=== PATIENT | male | born 1955 | race Caucasian/White ===

== ENCOUNTER 2016-06-24 10:38 | Emergency (ER) | payer SELFPAY ==
[2016-06-24 11:15] VITALS: BP 145/75
[2016-06-24] MEDS ORDERED: Tetan/Diph/Pertus SYR(Tdap)* 0.5 ML SYR(BOOSTRIX) use SYR IM ONE (11:26)
--- NOTE | 2016-06-24 11:26 | UC ---
Skin Complaint HPI - HPI Summary HPI Summary: bit by a spider just below left eye brow by a spider 3 days ago. worsening erythema and burning - History of Current Complaint Chief Complaint: UCEye Time Seen by Provider: 06/24/16 11:15 Stated Complaint: LEFT EYE COMPLAINT Hx Obtained From: Patient Onset/Duration: Sudden Onset, Lasting Days - 3, Still Present Skin Exposure Onset/Duration: Days Ago - 3 Timing: Constant Onset Severity: Mild Current Severity: Mild Pain Intensity: 5 Pain Scale Used: 0-10 Numeric Location: Discrete - below left eye brow Character: Pain, Redness Aggravating: Nothing Alleviating: Nothing Associated Signs & Symptoms: Positive: Negative Related History: Insect Bite/Sting - Allergy/Home Medications Allergies/Adverse Reactions: Allergies Allergy/AdvReac Type Severity Reaction Status Date / Time No Known Allergies Allergy Verified 06/24/16 11:15 Review of Systems Constitutional: Negative Skin: Other - erythema and swelling below left eye brow and above left eye lid Eyes: Negative ENT: Negative Respiratory: Negative Cardiovascular: Negative Gastrointestinal: Negative Genitourinary: Negative Motor: Negative Neurovascular: Negative Musculoskeletal: Negative Neurological: Negative Psychological: Negative All Other Systems Reviewed And Are Negative: Yes PMH/Surg Hx/FS Hx/Imm Hx Previously Healthy: Yes Endocrine History Of: Denies: Diabetes, Thyroid Disease, Hyperthyroidism, Hypothyroidism, Dyslipidemia Cardiovascular History Of: Denies: Cardiac Disorders, Hypertension, Pacemaker/ICD, Myocardial Infarction , Congestive Heart Failure, Atrial Fibrillation, Deep Vein Thrombosis, Bleeding Disorders Respiratory History Of: Denies: COPD, Asthma, Bronchitis, Pneumonia, Pulmonary Embolism GI/ History Of: Denies: Gastroesophageal Reflux, Ulcer, Gastrointestinal Bleed, Gall Bladder Disease, Kidney Stones, Diverticulitis, Renal Disease, Urosepsis Neurological History Of: Denies: TIA, CVA, Dementia, Seizures, Migraine Psychological History Of: Denies: Anxiety, Depression, Bipolar Disorder, Schizophrenia, Post Traumatic Stress Disorder Cancer History Of: Denies: Lung Cancer, Colorectal Cancer, Breast Cancer, Prostate Cancer, Cervical Cancer Other History Of: Negative For: HIV, Hepatitis B, Hepatitis C - Surgical History Surgical History: Yes Surgery Procedure, Year, and Place: RIGHT ARM SURGERY FOR FB AND LACERATION - Family History Known Family History: Positive: None - Social History Occupation: Employed Full-time - self employed Alcohol Use: None Substance Use Type: Marijuana Substance Use Comment - Amount & Last Used: once a day, last used this morning Smoking Status (MU): Never Smoked Tobacco Type: Cigarettes Amount Used/How Often: 1-2 CIGS DAILY Length of Time of Smoking/Using Tobacco: 40 yrs Have You Smoked in the Last Year: No When Did the Patient Quit Smoking/Using Tobacco: ~2014 - Immunization History Most Recent Influenza Vaccination: November 2014 Physical Exam Triage Information Reviewed: Yes Appearance: Well-Appearing, No Pain Distress, Well-Nourished Vital Signs: Initial Vital Signs Temp 97.7 F 06/24/16 11:07 Pulse 68 06/24/16 11:07 Resp 18 06/24/16 11:07 BP 145/75 06/24/16 11:07 Pulse Ox 98 06/24/16 11:07 Eye Exam: Normal Eyes: Positive: Conjunctiva Clear, Other: - EOMI not painful intact ENT Exam: Normal ENT: Positive: Normal ENT inspection, Hearing grossly normal, TMs normal. Negative: Nasal congestion, Nasal drainage, Tonsillar swelling, Tonsillar exudate, Trismus, Muffled/hoarse voice Neck exam: Normal Neck: Positive: Supple, Nontender, No Lymphadenopathy Respiratory Exam: Normal Respiratory: Positive: Chest non-tender, Lungs clear, Normal breath sounds, No respiratory distress, No accessory muscle use Cardiovascular Exam: Normal Cardiovascular: Positive: RRR, No Murmur, Pulses Normal, Brisk Capillary Refill Musculoskeletal Exam: Normal Musculoskeletal: Positive: Strength Intact, ROM Intact, No Edema Neurological Exam: Normal Neurological: Positive: Alert, Muscle Tone Normal, Fatigued Psychological Exam: Normal Skin Exam: Normal Course/Dx - Course Course Of Treatment: warm compress bactrim follow with optho. - Differential Diagnoses - Skin Complaint Differential Diagnoses: Cellulitis, Local Allergic Reaction - cellulitis left eye lid, Tick Born Illness - Diagnoses Provider Diagnoses: Left eye lid cellulitis Discharge - Discharge Plan Condition: Stable Disposition: HOME Prescriptions: Sulfamethox/Trimethoprim DS* [Bactrim DS 800/160 TAB*] 1 tab PO BID #20 tab Patient Education Materials: Sulfamethoxazole/Trimethoprim (By mouth), Diphtheria/Acellular Pertussis/Tetanus Booster Vaccine (Tdap) (Injection), Cellulitis (ED), Heat Pack Application (ED) Referrals: Lynn Johnson MD [Medical Doctor] - 3 Days (re-check ) No Primary Care Phys,NOPCP [Primary Care Provider] -
== END 2016-06-24 11:45 | disposition home or self-care (01) ==
LOC: UCCORT 10:38
DX: H00.034 Abscess of left upper eyelid (principal); Z23 Encounter for immunization; F12.90 Cannabis use, unspecified, uncomplicated; Z87.891 Personal history of nicotine dependence
CPT/HCPCS: 90715; 96372; 99212; G0463

== ENCOUNTER 2018-06-26 08:24 | Inpatient (IN) | payer OTHER ==
--- NOTE | 2018-06-18 14:28 | HP ---
HISTORY AND PHYSICAL: DATE OF ADMISSION/SURGERY: 06/26/18 DATE OF OFFICE VISIT: 06/18/18 SURGEON: Ellie Randall MD* (dictated by ARELY Blair). PROCEDURE: Right total hip arthroplasty. CHIEF COMPLAINT: Right hip pain. HISTORY OF PRESENT ILLNESS: Mr. Leblanc is a 62-year-old gentleman with endstage osteoarthritis of the right hip. He has failed conservative treatment and elected to proceed with surgery. PAST MEDICAL HISTORY: Denies. PAST SURGICAL HISTORY: Denies. CURRENT MEDICATIONS: Tramadol as needed. ALLERGIES: None. FAMILY HISTORY: Stroke, diabetes, and coronary artery disease. SOCIAL HISTORY: He is a 62-year-old gentleman, lives with his . He smokes 3 to 4 cigarettes a day. Denies use of drugs or alcohol. REVIEW OF SYSTEMS: A complete 14-point review of systems was reviewed with the patient. It was all negative or noncontributory. He denies history of DVT, PE , hepatitis, HIV, or anesthesia problems. PHYSICAL EXAMINATION GENERAL: He is well developed, well nourished, in no acute distress. VITAL SIGNS: He stands 69 inches tall, weighs 194 pounds. His blood pressure is 124/80, his heart rate is 72. HEENT: Normocephalic, atraumatic. NECK: Supple. No palpable lymph nodes. PULMONARY: The lungs are clear to auscultation bilaterally. CARDIO: Regular rate and rhythm. Strong S1, S2. ABDOMEN: Soft, nontender, nondistended. NEUROLOGICAL: He is alert and oriented x3. MUSCULOSKELETAL: Right lower extremity: The skin is intact. There are no open wounds or abrasions. He walks with an antalgic-type gait favoring his right hip. He has 90 degrees of hip flexion, 0 degrees of internal rotation, 10 degrees of external rotation, all reproducing groin pain. He has a 2+ palpable pulse, intact sensation, and his lower extremity muscle group strengths are intact at 5/5. ASSESSMENT AND PLAN: Mr. Leblanc is a 62-year-old gentleman with endstage osteoarthritis of the right hip. He has failed conservative treatment and elected to proceed with a right total hip arthroplasty. The surgery is scheduled for 06/26/[address] Randall discussed the risks and benefits of the surgery at today's visit and all of his questions were answered. He will follow up with Dr. Randall 2 weeks after the surgery. ARELY BLAIR [id number]/CPS #: [id number] MTDD
[~2018-06-26 08:24] MED LIST: Acetaminophen IV 1GM/100ML * 1,000 MG/100 ML VIAL IVPB ONE; Buffered Lidocaine 1% SYRIN* 1 ML/SYRINGE INTRADERM ONE; Dexamethasone IV* 4 MG/ML 1 ML (4 MG) IV SLOW PU ONE; Famotidine IV* 10 MG/ML 2 ML (20 mg) IV ONE; Gabapentin CAP(*) 300 MG PO ONE; Lactated Ringers 1000 ML Bag* 1,000 ML IV SCH; celeCOXIB CAP* 200 MG PO ONE
--- OUTSIDE RECORDS SUMMARY | 2018-06-26 10:16 | XMS REPORT | Continuity of Care Document ---
:1955 External Reference #:[id number] Author Name Anne Laguerre Care Team Providers Name Role Phone Jimbo Johns MD Primary Care Physician Unavailable Payers Date Identification Numbers Payment Provider Subscriber Policy Number: [id number] [employer] Insurance Mora White PayID: [id number] [address] [place] [address] Advance Directives Description No Information Available Problems Date Description Provider Status Onset: 05/18/2018 Localized, primary osteoarthritis of the Ellie Randall M.D. Active pelvic region and thigh Family History Date Family Member(s) Observation Comments General DM,HTN,Stroke,Cancer Father Stroke Mother Diabetes Type II Siblings 5 Social History Type Date Description Comments Sex Unknown Marital Status Lives With Diet Healthy, Well Balanced Occupation Currently Working Occupation [employer] Right-handed ETOH Use Occasionally consumes alcohol Tobacco Use Start: Unknown Light tobacco smoker (10 or fewer 3 a day cigarettes/day) Smoking Status Reviewed: 06/07/18 Light tobacco smoker (10 or fewer 3 a day cigarettes/day) Exercise Type/Frequency Exercises regularly Allergies, Adverse Reactions, Alerts Description No Known Drug Allergies Medications Medication Date Status Form Strength Qnty SIG Indications Ordering Provider Hydrocodone-A Active Tablets 5-325mg 60tabs 1 or 2 M16.11 Ellie cetaminophen 019 tabs by Emigdio Randall mouth every 6-8 hours as needed for pain Celecoxib Active Capsules 200mg 1 by mouth Unknown 000 every day Tramadol HCL 0 Hx Tablets 50mg 1-2 Unknown 000 - tablets by mouth 019 every 6 hours as needed pain Immunizations Description No Information Available Vital Signs Date Vital Result Comment 06/07/2018 9:05am Height 69 inches 5'9" Weight 192.00 lb Heart Rate 70 /min BP Systolic 140 mmHg BP Diastolic 78 mmHg Respiratory Rate 16 /min O2 % BldC Oximetry 98 % BMI (Body Mass Index) 28.4 kg/m2 05/18/2018 10:42am Height 69.0 inches 5'9" Weight 192.00 lb BP Systolic 144 mmHg BP Diastolic 82 mmHg Pain Level 9 BMI (Body Mass Index) 28.4 kg/m2 Results Test Date Facility Test Result H/L Range Note Laboratory test 06/08/2018 [facility] PSA Screening 1.985 ng/mL N 0-4.000 [address] [place] [address] [phone] Comp Metabolic 06/08/2018 [facility] Sodium 140 mmol/L N 135- [address] [place] [address] [phone] Potassium 4.7 mmol/L N 3.5-5.0 Chloride 104 mmol/L N 101-111 Co2 Carbon Dioxide 25 mmol/L N 22-32 Anion Gap 11 mmol/L N 2-11 Glucose 122 mg/dL High 70-100 Blood Urea Nitrogen 17 mg/dL N 6-24 Creatinine 0.81 mg/dL N 0.67-1.17 BUN/Creatinine Ratio 21.0 High 8-20 Calcium 9.3 mg/dL N 8.6-10.3 Total Protein 7.0 g/dL N 6.4-8.9 Albumin 4.5 g/dL N 3.2-5.2 Globulin 2.5 g/dL N 2-4 Albumin/Globulin Ratio 1.8 N 1-3 Total Bilirubin 0.70 mg/dL N 0.2-1.0 Alkaline Phosphatase 73 U/L N 34-104 Alt 47 U/L N 7-52 Ast 23 U/L N 13-39 Egfr Non- 96.6 >60 Egfr 116.8 >60 2 CBC Auto Diff 06/08/2018 [facility] White Blood 8.8 10^3/uL N 3.5-10.[address] [place] [address] [phone] Red Blood Count 4.87 10^6/uL N 4.18-5.48 Hemoglobin 15.3 g/dL N 14.0-18.0 Hematocrit 44 % N 36-46 Mean Corpuscular Volume 91 fL N 80-94 Mean Corpuscular Hemoglobin 31 pg N 27-31 Mean Corpuscular HGB Conc 35 g/dL N 31-36 Red Cell Distribution Width 13 % N 10.5-15 Platelet Count 251 10^3/uL N 150-450 Mean Platelet Volume 8.5 fL N 7.4-10.4 Abs Neutrophils 5.1 10^3/uL N 1.5-7.7 Abs Lymphocytes 2.5 10^3/uL N 1.0-4.8 Abs Monocytes 1.0 10^3/uL High 0-0.8 Abs Eosinophils 0.1 10^3/uL N 0-0.6 Abs Basophils 0 10^3/uL N 0-0.2 Abs Nucleated RBC 0 10^3/uL Granulocyte % 58.4 % Lymphocyte % 28.3 % Monocyte % 11.6 % Eosinophil % 1.3 % Basophil % 0.4 % Nucleated Red Blood Cells % 0 Laboratory test 06/08/2018 [facility] TSH (Thyroid 3.59 mcIU/mL N 0.34-5.[address] [place]) [place] [address] [phone] 1 Serum levels of PSA measured using the [employer] [place] DXI Hybritech immunoassay should not be interpreted as absolute evidence of the presence or absence of disease. The PSA value should be used in conjunction with other pertinent clinical diagnostic procedures. The values obtained with different assay methods or kits cannot be used interchangeably. 2 Because ethnic data is not always readily available, this report includes an eGFR for both -Americans and non- Americans. The National Kidney Disease Education Program (NKDEP) does not endorse the use of the MDRD equation for patients that are not between the ages of 18 and 70, are , have extremes of body size, muscle mass, or nutritional status, or are non- or non-. According to the National Kidney Foundation, irrespective of diagnosis, the stage of the disease is based on the level of kidney function: Stage Description GFR(mL/min/1.73 m(2)) 1 Kidney damage with normal or decreased GFR 90 2 Kidney damage with mild decrease in GFR 60-89 3 Moderate decrease in GFR 30-59 4 Severe decrease in GFR 15-29 5 Kidney failure <15 (or dialysis) Procedures Description No Information Available Encounters Type Date Location Provider Dx Diagnosis Office Visit 06/07/2018 [facility] Jimbo Z01.818 Encounter for other 9:00a MD Nat preprocedural examination M16.11 Unilateral primary osteoarthritis, right hip M25.551 Pain in right hip F17.200 Nicotine dependence, unspecified, uncomplicated Z12.11 Encounter for screening for malignant neoplasm of colon Z12.5 Encounter for screening for malignant neoplasm of prostate Office Visit 05/18/2018 10:30a [facility] Ellie Randall, M25.551 Pain in right Of C.M.A. M.D. hip M16.11 Unilateral primary osteoarthritis, right hip Plan of Treatment Future Appointment(s):06/26/2018 4:30 pm - [facility] 4:30 pm - ARELY Farris at [facility]A.06/10/2019 9:30 am - Jimbo Johns MD at [facility]06/26/2018 4:30 pm - [facility] 8:30 am - Ellie Randall M.D. at [facility]A.2018 - Jimbo Johns MDZ01.818 Encounter for other preprocedural hucqawgwwjmI32.11 Unilateral primary osteoarthritis, right hipFollow up:1 year fveffdocU15.551 Pain in right hipF17.200 Nicotine dependence, unspecified, ahszhjxmkzokiS42.11 Encounter for screening for malignant neoplasm of colonReferral:Tova Gardner MD, QwrbxamkyhwkxgjlF62.5 Encounter for screening for malignant neoplasm of prostate
--- OUTSIDE RECORDS SUMMARY | 2018-06-26 10:16 | XMS REPORT | Continuity of Care Document ---
:1955 External Reference #:[id number] Author Name Arnaud Buckner Care Team Providers Name Role Phone Raisa Winston Primary Care Physician Unavailable Payers Date Identification Numbers Payment Provider Subscriber Policy Number: [id number] [employer] Insurance hossein white PayID: [id number] [address] [place] [address] Advance Directives Description No Information Available Problems [...] BMI (Body Mass Index) 28.4 kg/m2 Results Description No Information Available Procedures Description No Information Available Encounters Type Date Location Provider Dx Diagnosis Office Visit 05/18/2018 [facility] Randlal, M25.551 Pain in right hip 10:30a [facility] M16.11 Unilateral primary osteoarthritis, right hip Plan of Treatment Future Appointment(s):06/10/2019 9:30 am - Jimbo Johns MD at [facility]06/26/2018 3:30 pm - Ellie Randall M.D. at [facility]/18/2018 8:30 am - Ellie Randall M.D. at [facility]
--- OUTSIDE RECORDS SUMMARY | 2018-06-26 10:16 | XMS REPORT | Continuity of Care Document ---
:1955 External Reference #:[id number] Author Name Jeffy Carvalho Care Team Providers Name Role Phone Jimbo Johns MD Primary Care Physician Unavailable Payers Date Identification Numbers Payment Provider Subscriber Policy Number: [id number] [employer] Insurance Mora White PayID: [id number] [address] [place] [address] Advance Directives Description No Information Available Problems Date Description Provider Status Onset: 05/18/2018 Localized, primary osteoarthritis of the Elliereina Randall M.D. Active pelvic region and thigh [...] 3 a day cigarettes/day) Smoking Status Reviewed: 06/18/18 Light tobacco smoker (10 or fewer 3 a day cigarettes/day) Exercise Type/Frequency Exercises regularly Allergies, Adverse Reactions, Alerts Description No Known Drug Allergies Medications Medication Date Status Form Strength Qnty SIG Indications Ordering Provider No Active Active Unknown Medications 019 Hydrocodone-Ac Hx Tablets 5-325mg 60tabs 1 or 2 M16.11 Ellie etaminophen 019 - tabs by Prakash nathan M.DRosa 019 every 6-8 hours as needed for pain Tramadol HCL 0 Hx Tablets 50mg 1-2 Unknown 000 - tablets by mouth 019 every 6 hours as needed pain Celecoxib 0 Hx Capsules 200mg 1 by mouth Unknown 000 - every day 019 Immunizations Description No Information Available Vital Signs Date Vital Result Comment 06/18/2018 8:41am Height 69 inches 5'9" Weight 194.00 lb Heart Rate 72 /min BP Systolic 124 mmHg BP Diastolic 80 mmHg Respiratory Rate 16 /min Body Temperature 97.3 F Pain Level 10 BMI (Body Mass Index) 28.6 kg/m2 06/07/2018 9:05am Height 69 inches 5'9" Weight [...] Result H/L Range Note Laboratory test 06/08/2018 [facility] PSA Screening 1.985 ng/mL N 0-4.000 1 finding [address] [place] [address] [phone] Comp Metabolic 06/08/2018 [facility] Sodium 140 mmol/L N 135- 145 Panel [address] [place] [address] [phone] Potassium 4.7 mmol/L N 3.5-5.0 Chloride 104 [...] 116.8 >60 2 CBC Auto Diff 06/08/2018 [facility] White Blood 8.8 10^3/uL N 3.5-10.[address] [place] [address] [phone] Red Blood Count 4.87 10^6/uL N 4.18-5.48 [...] Blood Cells % 0 Laboratory test 06/08/2018 [facility] TSH (Thyroid 3.59 mcIU/mL N 0.34-5.[address] [place]) [place] [address] [phone] 1 Serum levels of PSA measured using the [employer] [place] DXI Hybritech immunoassay should not be interpreted [...] Location Provider Dx Diagnosis Office Visit 06/07/2018 [facility] Jimbo Z01.818 Encounter for other 9:00a MD Nat preprocedural examination M16.11 Unilateral primary osteoarthritis, right hip M25.551 Pain in right hip F17.200 Nicotine dependence, unspecified, uncomplicated Z12.11 Encounter for screening for malignant neoplasm of colon Z12.5 Encounter for screening for malignant neoplasm of prostate Office Visit 05/18/2018 10:30a [facility] Ellie Randall M25.551 Pain in right Of C.M.Yony Beal hip M16.11 Unilateral primary osteoarthritis, right hip Plan of Treatment Future Appointment(s):07/06/2018 9:00 am - Ellie Randall M.D. at [facility].A.06/26/2018 4:30 pm - ALEJANDRA Paul at [facility].A.06/26/2018 4:30 pm - ARELY Farris at [facility].A.06/10/2019 9:30 am - Jimbo Johns MD at [facility] Primary Care06/26/2018 4:30 pm - Ellie Randall M.D. at [facility].A.03/2018 - Ellie Randall M.D.M25.551 Pain in right hipFollow up:Follow up: 2 weeks after mtfcocyE65.11 Unilateral primary osteoarthritis, right hip
[2018-06-26] MEDS ORDERED: Dexamethasone IV* 4 MG/ML 1 ML (4 MG) ONE (10:27)
[2018-06-26] MEDS ORDERED: Gabapentin CAP(*) 300 MG ONE (10:27)
[2018-06-26] MEDS ORDERED: Famotidine IV* 10 MG/ML 2 ML (20 mg) ONE (10:28)
[2018-06-26] MEDS ORDERED: Acetaminophen IV 1GM/100ML * 100 ML ONE (10:32)
[2018-06-26] MEDS ORDERED: celeCOXIB CAP* 100 MG ONE (10:52)
[2018-06-26] MEDS ORDERED: fentaNYL* 50 MCG/ML 2 ML VIAL (100 MCG VIAL) ONE ×3 (11:53→17:42)
[2018-06-26] MEDS ORDERED: Midazolam* 1 MG/ML 5 ML VIAL (5 MG) ONE ×2 (11:53→13:59)
[2018-06-26] MEDS ORDERED: KETAMINE HCL* 50 MG/ML 10 ML VIAL ONE (11:53)
[2018-06-26] MEDS ORDERED: Ondansetron INJ* 2 MG/ML VIAL ONE (11:54)
[2018-06-26] MEDS ORDERED: Bupivacaine 0.5% SDV PF* 30ML VIAL ONE (11:54)
[2018-06-26] MEDS ORDERED: Propofol* 10 MG/ML 20 ML BTL ONE ×2 (11:54→15:31)
[2018-06-26] MEDS ORDERED: fentaNYL* 50 MCG/ML 2 ML VIAL (100 MCG VIAL) IV SLOW PU PRN (12:00)
[2018-06-26] MEDS ORDERED: Ropivacaine (OR use only) 2 MG/ML 10 ML ONE (12:48)
[2018-06-26] MEDS ORDERED: ROPIVACAINE 5 MG/ML 30 ML BTL (0.5%) ONE (12:48)
[2018-06-26] MEDS ORDERED: EPHEDrine (Pressors)* 50 MG/ML VIAL ONE (14:17)
[2018-06-26] MEDS ORDERED: Glycopyrrolate IV* 0.2 MG/ML 1 ML VIAL ONE (14:17)
[2018-06-26] MEDS ORDERED: Phenylephrine 10 MG/ML VIAL* 1 ML VIAL ONE (14:35)
[2018-06-26] MEDS ORDERED: HYDROmorphone INJ1* 1 MG/ML SYRINGE IV PRN (14:52)
[2018-06-26] MEDS ORDERED: Ondansetron INJ* 2 MG/ML VIAL IV PRN (14:52)
[2018-06-26] MEDS ORDERED: DiMENhydriNATE IV* 50 MG/ML VIAL IV PUSH PRN (14:52)
[2018-06-26] MEDS ORDERED: Naloxone* 0.4 MG/ML 1 ML VIAL IV PRN (14:52)
[2018-06-26] MEDS ORDERED: Magnesium Hydroxide LIQ* 30 ML UDC PO PRN (15:32)
[2018-06-26] MEDS ORDERED: Morphine INJ* 2 MG/ML 1 ML SYRINGE (TWO MG - NEW SYRINGE VERSION) IV PRN (15:32)
[2018-06-26] MEDS ORDERED: diPHENhydraMINE IV* 50 MG/ML 1 ml VIAL (BENADRYL) IV PRN (15:32)
[2018-06-26] MEDS ORDERED: Polyethylene Glycol 3350* 17 GM PACKET PO PRN (15:32)
[2018-06-26] MEDS ORDERED: Ondansetron TAB* 4 MG PO PRN (15:32)
[2018-06-26] MEDS ORDERED: Bisacodyl SUPP* 10 MG SUPP PR PRN (15:32)
[2018-06-26] MEDS ORDERED: Cyclobenzaprine TAB* 10 MG PO PRN (15:32)
[2018-06-26] MEDS ORDERED: oxyCODONE/Acetamin 5/325 MG* TAB PO PRN (15:32)
[2018-06-26] MEDS: fentaNYL* 50 MCG/ML 2 ML VIAL (100 MCG VIAL) IV PRN ×2 (17:43→18:27)
--- NOTE | 2018-06-26 19:45 | OP ---
Operative Report - Blank - Operative Report Date of Operation: 06/26/18 Note: VEENA RAMOS 1955 Date Of Surgery: 06/26/18 Ellie Randall MD Grinder Needle Tip: Ina MCGEE did help throughout the procedure with preparation of the hip, wound retraction, manipulation of the hip, and wound closure. Anesthesiologist: Yashira Lundy MD Anesthesia Type: spinal Preoperative Diagnosis: Right severe degenerative osteoarthritis of the hip Postoperative Diagnosis: As above Procedure Performed: Right Total Hip Arthroplasty Complications: None Specimen: Femoral head and acetabular reamings sent to pathology. Hardware used: This is uncemented Ken total hip arthroplasty hardware for the femur a size 4 accolade II with 127 degree neck femoral component, for the acetabulum a size 56F trident II tritanium cluster hole shell with one 20 mm screw, for the insert a size 40F trident x3 zero degree polyethylene insert, and for the femoral head a size 40 +0 biolox ceramic V40 femoral head. Brief history/Indication: VEENA RAMOS was known in clinic and had a history of severe right hip pain. He failed conservative treatment with anti- inflammatories, pain pills, intra-articular injections and physical therapy. He elected to undergo right total hip arthroplasty due to continued pain and decreased quality of life. Radiographs showed severe end stage osteoarthritis of the hip with bone on bone contact. Informed consent was obtained from the patient. He understood the risks of surgery included but were not limited to: bleeding, infection, damage to nearby structures, intraoperative fracture, nerve palsy, failure of the hardware, early loosening, stiffness or loss of motion, dislocation, leg length discrepancy, anesthesia complications, stroke, heart attack, blood clot and . He wished to proceed. Intra-Operative findings: Intraoperatively the patient was noted to have severe loss of cartilage of the acetabulum and femoral head. Description of the Procedure: VEENA RAMOS was identified in the preanesthesia unit. His right hip was marked as the correct operative side. Informed consent was signed and placed in the chart. The patient was taken to the operating room and placed under anesthesia without complication. A mcdowell catheter was placed. The patient was placed on the peg board with all bony prominences well padded. The right lower extremity was prepped and draped in the usual sterile fashion. Preoperative time-out was made to correctly identify the patient, side and site. Appropriate intraoperative antibiotics were given within one hour of incision. A standard posterior incision was made and carried sharply down to the lateral fascia. A new 10 blade was used to make an incision in the fascia in line with the skin incision. A charnley retractor was placed. The piriformis and conjoined tendons were identified and elevated off the posterolateral femur using electrocautery. These were tagged with number 5 Ethibond. Next electrocautery was used to make a posterolateral capsular flap and this was tagged with number 5 Ethibonds. The hip was carefully dislocated. Lesser trochanter to the center of the femoral head was measured at 62 mm. The oscillating saw was used to make the femoral neck cut. The femoral head was carefully removed. The femur was retracted anteriorly and the acetabular retractors were placed. Long-handled knife was used to sharply remove any remaining labrum from the acetabular rim. The acetabulum was sequentially reamed up to a size 55. A bleeding subchondral bone bed was obtained. A trial liner was placed and had excellent fit and stability. A 56F trident II tritanium clusterhole shell was placed and had excellent stability with appropriate anteversion and abduction angle. A single 20 mm screw was placed. A size 40 F trident x3 zero degree polyethylene liner was impacted into the acetabular shell. The liner was checked for stability and was stable. Next attention was turned to preparation of the femoral canal. A canal finder was used to enter the proximal femur. The femoral canal was sequentially broached up to a size 4 femoral broach trial. A trial neck and 40+ 0 trial femoral head was chosen. Lesser trochanter to center of the femoral head measurement was satisfactory. The hip was reduced and taken through a range of motion. The hip was stable in all positions with good soft tissue tension and appropriate leg lengths. The hip was dislocated and all trials were removed. The final implant chosen was a 4 accolade II with 127 degree neck. This stem was impacted into the femoral canal without difficulty. The stem was stable with appropriate anteversion. The femoral head chosen was a 40 + 0 biolox delta ceramic head. The head was impacted onto the femoral neck without difficulty. The final lesser trochanter to center of the femoral head measurement was satisfactory. The hip was reduced and taken through a range of motion. The hip was stable in all positions with good soft tissue tension and appropriate leg lengths. The hip was copiously irrigated with sterile saline. The previously tagged capsule and tendons were repaired to the posterolateral femur through two trochanteric drill holes. The lateral fascia layer was closed using number 1 vicryls. The rest of the incision was closed in a layered fashion using 0 and 2-0 vicryls. The skin was closed using 3-0 monocryl suture and Dermabond. Sterile adaptic, 4x4s and paper tape was used to cover the incision. The patients anesthesia was reversed without difficulty. He was taken to the PACU in stable condition. Intended weight-bearing will be as tolerated with posterior hip precautions.
[2018-06-26] MEDS: Lactated Ringers 1000 ML Bag* 1,000 ML IV SCH (19:57)
[2018-06-26] MEDS: oxyCODONE/Acetamin 5/325 MG* TAB PO PRN (20:25)
[2018-06-26] MEDS: traMADol TAB* 50 MG PO PRN (20:28)
[2018-06-26] MEDS: ceFAZolin 1 GM ADVAN(*) 1 GM in NS 0.9% 50 ML* 50 ML IVPB SCH ×2 (21:53→22:56)
[2018-06-26] MEDS: Acetaminophen TAB* 325 MG PO SCH (21:56)
[2018-06-26] MEDS: oxyCODONE TAB* 5 MG TAB PO PRN (22:46)
[2018-06-26] MEDS: Docusate CAP* 100 MG PO SCH (22:47)
[2018-06-26] MEDS: Magnesium Hydroxide LIQ* 30 ML UDC PO SCH (22:47)
[2018-06-27] MEDS: oxyCODONE/Acetamin 5/325 MG* TAB PO PRN ×3 (00:59→09:21)
[2018-06-27 05:31] LABS: Hematocrit 36 % (36-46); Hemoglobin 12.1 g/dL (14.0-18.0); Mean Platelet Volume 8.2 fL (7.4-10.4); Platelet Count 225 10^3/uL (150-450)
[2018-06-27] MEDS: ceFAZolin 1 GM ADVAN(*) 1 GM in NS 0.9% 50 ML* 50 ML IVPB SCH ×2 (05:41→13:05)
[2018-06-27 05:49] LABS: BUN/Creatinine Ratio 14.7 (8-20); Calcium 8.7 mg/dL (8.6-10.3); EGFR African American 127.7 (>60); EGFR Non-African American 105.5 (>60); Potassium 4.4 mmol/L (3.5-5.0)
[2018-06-27] MEDS: Lactated Ringers 1000 ML Bag* 1,000 ML IV SCH (06:10)
[2018-06-27] MEDS: Acetaminophen TAB* 325 MG PO SCH ×3 (06:43→22:35)
--- NOTE | 2018-06-27 07:04 | PN ---
Progress Note - Progress Note Date of Service: 06/27/18 SOAP: Subjective: Pt. reports pain is under control, anterior right thigh is numb. Objective: Vital Signs: Temp Pulse Resp BP Pulse Ox 97.9 F 75 16 130/66 94 06/26/18 22:30 06/26/18 22:30 06/27/18 05:40 06/26/18 22:30 06/26/18 22:30 Laboratory Results - last 24 hr 06/27/18 06/27/18 04:55 04:55 Hgb 12.1 L Hct 36 Plt Count 225 MPV 8.2 Sodium 136 Potassium 4.4 Chloride 105 Carbon Dioxide 27 Anion Gap 4 BUN 11 Creatinine 0.75 Est GFR ( Amer) 127.7 Est GFR (Non-Af Amer) 105.5 BUN/Creatinine Ratio 14.7 Glucose 157 H Calcium 8.7 RLE - anterior thigh with decreased sens LT, distally nvi with full sens lt, +df /pf/ehl, 2+ dp pulse. 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
[2018-06-27] MEDS: Apixaban* 2.5 MG TAB PO SCH ×2 (09:22→22:34)
[2018-06-27] MEDS: Magnesium Hydroxide LIQ* 30 ML UDC PO SCH ×2 (09:22→22:25)
[2018-06-27] MEDS: Docusate CAP* 100 MG PO SCH ×2 (09:23→22:37)
[2018-06-27] MEDS: oxyCODONE TAB* 5 MG TAB PO PRN (11:09)
[2018-06-27] MEDS: Simethicone TAB* 80 MG TAB.CHEW PO PRN ×2 (13:01→22:37)
[2018-06-27] MEDS: traMADol TAB* 50 MG PO PRN (13:01)
[2018-06-27] MEDS: Ondansetron INJ* 2 MG/ML VIAL IV PRN (18:11)
--- NOTE | 2018-06-27 20:11 | PN ---
Hospitalist Progress Note Date of Service: 06/27/18 Patient seen and evaluated full consult dictated #[id number] 62 year old male s/p right TKA with abdominal pain Imp: 1. Ileus versus mechanichal obstructions - Recommend NPO except meds, minimize narcotics, continue bowel regimen, continue IVF. Labs ordered, CT Abdomen and pelvis, pending CT abdomen if mechanical obstruction will need to call surgery, if simply ileus, than keep npo ambulate and NGT only if he devellops vomiting Will continue to follow
[2018-06-27 20:37] LABS: ABS Basophils 0 10^3/ul (0-0.2); ABS Eosinophils 0 10^3/ul (0-0.6); ABS Lymphocytes 1.1 10^3/ul (1.0-4.8); ABS Monocytes 1.4 10^3/ul (0-0.8); ABS Neutrophils 10.7 10^3/ul (1.5-7.7); ABS Nucleated RBC 0 10^3/ul; Eosinophil % 0 %; Hematocrit 36 % (36-46); Hemoglobin 12.3 g/dL (14.0-18.0); Lymphocyte % 8.2 %; Mean Corpuscular HGB Conc 34 g/dL (31-36); Mean Corpuscular Hemoglobin 31 pg (27-31); Mean Corpuscular Volume 91 fL (80-94); Mean Platelet Volume 7.6 fL (7.4-10.4); Nucleated Red Blood Cells % 0; Platelet Count 218 10^3/uL (150-450); Red Blood Count 3.93 10^6 /uL (4.18-5.48); Red Cell Distribution Width 13 % (10.5-15); White Blood Count 13.2 10^3/uL (3.5-10.8)
[2018-06-27 20:57] LABS: Calcium 8.9 mg/dL (8.6-10.3); EGFR African American 116.8 (>60); EGFR Non-African American 96.6 (>60); Phosphorus 2.5 mg/dL (2.5-5.0); Potassium 4.1 mmol/L (3.5-5.0)
--- NOTE | 2018-06-27 21:36 | CONS ---
CC: Dr. Randall from Orthopedics; ARELY Santos * CONSULTATION REPORT: DATE OF CONSULT: 06/27/18 REQUESTING PHYSICIAN: Dr. Jimbo Lundy, orthopedic. CONSULTING PHYSICIAN: Dr. Braden. PRIMARY CARE PROVIDER: ARELY Santos SERVICE: Hospitalist Medicine. CHIEF COMPLAINT: Abdominal pain and possible obstruction versus ileus. SUBJECTIVE: This is a 62-year-old male with significant medical history pertinent for chronic right hip osteoarthritis for which he was admitted on 12/06 for elective right total hip arthroplasty, underwent the procedure without any complication and minimal blood loss. This morning, he started developing abdominal pain, got worse throughout the day. He was sent for abdominal imaging that included a plain flat and upright x-ray and the image did show diffuse distention of the colon throughout down to the rectum with differential of colonic obstruction versus pseudo-obstruction. Hence, Medicine Service was consulted for further recommendation and evaluation. The patient was seen and evaluated by me on the medical floor on Short Stay, room 347, around 7:28 p.m. He was on the toilet, having loose stool with 1 episode of vomiting. He described his pain as sharp, diffuse in lower quadrant, bilateral , and increased tenesmus and urge to have a bowel movement with only liquid stool passing. He feels better after he vomited. No nausea afterward. There was no fever documented. No chills. PAST MEDICAL HISTORY: 1. History of osteoarthritis of the right hip. 2. Right total knee replacement. MEDICATIONS: At home: 1. Tramadol 50. 2. Celebrex 200. 3. Vicodin 5/325. Inpatient medication: 1. Tylenol q.8 hours 975. 2. Eliquis 2.5 b.i.d. 3. Dulcolax suppository p.r.n. 4. Flexeril 10 mg t.i.d. p.r.n. 5. Benadryl 12.5 q.6 p.r.n. for itching. 6. Colace 100 b.i.d. 7. Lactulose 30 mL p.o. q.6 hours p.r.n. constipation. 8. Magnesium 30 mL p.o. q.6 hours p.r.n. 9. Morphine sulfate 2 mg IV q.2 hours p.r.n. 10. Zofran 4 mg IV q.6 hours p.r.n. 11. Oxycodone 10 mg q.4 p.r.n. 12. Percocet 5/325 q.4 p.r.n. 13. MiraLAX 17 g p.o. daily p.r.n. 14. Simethicone 80 mg p.o. q.6 hours p.r.n. ALLERGIES: No known drug allergies. FAMILY HISTORY: Significant for diabetes, hypertension, and stroke. Father from stroke. Mother is diabetic. SOCIAL HISTORY: . Lives with . He usually works in the farm. REVIEW OF SYSTEMS: As per HPI. PHYSICAL EXAM: Temperature of 98.5, pulse 81, respiratory rate 16, satting 92, blood pressure 137/75. Generally, he is awake. He is in the bathroom on the toilet. He was retching, status post vomiting and diarrhea. Lungs: Diminished breath sounds in the base. Fine expiratory wheezing. Cardiovascular : S1, S2, regular rate and rhythm. Abdomen: Distended, firm, nontender. No rebound. No bowel sounds. Bowel sound is absent. Extremity: Positive for edema trace ankle with the right hip dressing in place, intact, clean, and dry. DIAGNOSTIC STUDIES/LAB DATA: Available study is hemoglobin 12.1, hematocrit 36 this morning and his chemistry is normal. Potassium 4.4, sodium 136, BUN is 11 , creatinine 0.7, glucose 157, calcium 8.7. His abdominal x-ray done at 4 o'clock shows air-fluid level with dilation of the colon, suggestive for obstruction versus pseudo. ASSESSMENT AND PLAN: This is a 62-year-old male, status post right total hip arthroplasty, developed abdominal pain with nausea, vomiting x1, and increased abdominal distention, and watery stool. We were asked to assess his abdominal pain for further recommendation. 1. His abdominal pain is most likely secondary to ileus, cannot rule out mechanical obstruction. At this time, we will order to make him n.p.o. except for ice chips and medication. Continue with the IV fluid. I will minimize his narcotic and I will discontinue some of his oxycodone. We will leave him on IV morphine given the fact that he just had a hip replacement; and 1 tab of the Percocet, we will discontinue the 2 tabs; discontinue his tramadol. 2. He is already on multiple bowel regimen for which I will continue. 3. He was encouraged to ambulate. We will send him for CT scan of the abdomen with oral contrast to rule out mechanical obstruction. 4. I did instruct the patient I will avoid placing NG tube right now unless he develop further vomiting where NG tube will be warranted for low intermittent suctioning. 5. I am going to send for stat lab to include CBC, chemistry to make sure his electrolytes are normal including mag and phos. We will continue to follow up with you. If the CT scan did show indeed mechanical obstruction, then surgery will be warranted to evaluate the patient as well. Thank you kindly refer this consult. We will continue to follow up with you. [id number]/[facility] #: [id number] YI
[2018-06-27] MEDS ORDERED: Lactated Ringers 1000 ML Bag* 1,000 ML IV ONE (21:38)
[2018-06-28] MEDS: Ondansetron INJ* 2 MG/ML VIAL IV PRN (01:18)
[2018-06-28] MEDS: Acetaminophen TAB* 325 MG PO SCH ×3 (06:12→21:36)
[2018-06-28 06:51] LABS: Hematocrit 35 % (36-46); Hemoglobin 12.1 g/dL (14.0-18.0); Mean Platelet Volume 7.6 fL (7.4-10.4); Platelet Count 215 10^3/uL (150-450)
[2018-06-28 08:28] LABS: Mean Corpuscular HGB Conc 34 g/dL (31-36); Mean Corpuscular Hemoglobin 31 pg (27-31); Mean Corpuscular Volume 91 fL (80-94); Red Blood Count 3.85 10^6 /uL (4.18-5.48); Red Cell Distribution Width 13 % (10.5-15); White Blood Count 13.2 10^3/uL (3.5-10.8)
[2018-06-28] MEDS: Magnesium Hydroxide LIQ* 30 ML UDC PO SCH ×2 (09:29→20:26)
[2018-06-28] MEDS: Docusate CAP* 100 MG PO SCH ×2 (09:29→20:26)
[2018-06-28 10:42] LABS: ABS Basophils 0 10^3/ul (0-0.2); ABS Eosinophils 0 10^3/ul (0-0.6); ABS Lymphocytes 1.2 10^3/ul (1.0-4.8); ABS Monocytes 1.6 10^3/ul (0-0.8); ABS Neutrophils 10.3 10^3/ul (1.5-7.7); ABS Nucleated RBC 0 10^3/ul; Eosinophil % 0 %; Lymphocyte % 9.4 %; Nucleated Red Blood Cells % 0
[2018-06-28] MEDS: Apixaban* 2.5 MG TAB PO SCH ×2 (11:40→20:04)
--- NOTE | 2018-06-28 12:07 | PN ---
Progress Note - Progress Note Date of Service: 06/28/18 Note: Brief Note (full consult dictated): Patient seen and examined. Has significant colonic and cecal distension. May benefit from therapeutic colonoscopy. Will d/w Dr. Hartley.
--- NOTE | 2018-06-28 13:56 | PN ---
Progress Note - Progress Note Date of Service: 06/28/18 SOAP: Subjective: []Pt seen at bedside. His hip is not bothersome, he has been out of bed ambulating well. Denies CP, SOB, dizziness. Yesterday an abdominal xray was ordered and hospitalist service consulted due to progressively worsening abdominal pain. Xray showed likely ileus. He was made NPO and later a CT scan ordered. He has has bowel movements yesterday as well as today though remains quite nauseous and with abdominal pain. Today general surgery also consult, who recommend a GI consult to eval for need for decompression. Objective: []General: Laying in bed, uncomfortable, a&o x 3 RLE: RIght hip dressing changed, incision CDI without erythema or discharge. Thigh is soft, DF/PF intact, DP2+ Calves supple and nontender without erythema, edema or palpable cords Assessment: []POD 2 SP RTH ileus vs obstruction, GI consult pending Plan: []WBAT PT/OT Posterior hip precautions Appreciate consults from medicine, surgery, GI. Vital Signs Temp 97.7 F 06/28/18 11:29 Pulse 101 06/28/18 11:29 Resp 17 06/28/18 11:29 BP 152/67 06/28/18 11:29 Pulse Ox 92 06/28/18 11:29 Intake & Output 06/27/18 06/28/18 06/28/18 18:59 06:59 18:59 Intake Total 3208 60 Output Total 350 410 Balance 2858 -350 Intake: IV Fluids 1683 ABX - CEFAZOLIN 110 LR 1573 IVPB 1405 ABX - CEFAZOLIN 55 LR 1350 Oral 120 60 Output: Urine 350 410 Other: Estimated Void Medium Date of Last Bowel 06/28/18 Movement # Bowel Movements 1 0 Estimated Stool Amount Medium Small # Voids 1 Laboratory Last Values WBC 13.2 10^3/uL (3.5-10.8) H 06/28/18 06:40 RBC 3.85 10^6 /uL (4.18-5.48) L 06/28/18 06:40 Hgb 12.1 g/dL (14.0-18.0) L 06/28/18 06:40 Hct 35 % (36-46) L 06/28/18 06:40 MCV 91 fL (80-94) 06/28/18 06:40 MCH 31 pg (27-31) 06/28/18 06:40 MCHC 34 g/dL (31-36) 06/28/18 06:40 RDW 13 % (10.5-15) 06/28/18 06:40 Plt Count 215 10^3/uL (150-450) 06/28/18 06:40 MPV 7.6 fL (7.4-10.4) 06/28/18 06:40 Neut % (Auto) 78.5 % 06/28/18 06:40 Lymph % (Auto) 9.4 % 06/28/18 06:40 Gosper % (Auto) 12.0 % 06/28/18 06:40 Eos % (Auto) 0 % 06/28/18 06:40 Baso % (Auto) 0.1 % 06/28/18 06:40 Absolute Neuts (auto) 10.3 10^3/ul (1.5-7.7) H 06/28/18 06:40 Absolute Lymphs (auto) 1.2 10^3/ul (1.0-4.8) 06/28/18 06:40 Absolute Monos (auto) 1.6 10^3/ul (0-0.8) H 06/28/18 06:40 Absolute Eos (auto) 0 10^3/ul (0-0.6) 06/28/18 06:40 Absolute Basos (auto) 0 10^3/ul (0-0.2) 06/28/18 06:40 Absolute Nucleated RBC 0 10^3/ul 06/28/18 06:40 Nucleated RBC % 0 06/28/18 06:40 Sodium 139 mmol/L (135-145) 06/27/18 20:32 Potassium 4.1 mmol/L (3.5-5.0) 06/27/18 20:32 Chloride 103 mmol/L (101-111) 06/27/18 20:32 Carbon Dioxide 29 mmol/L (22-32) 06/27/18 20:32 Anion Gap 7 mmol/L (2-11) 06/27/18 20:32 BUN 13 mg/dL (6-24) 06/27/18 20:32 Creatinine 0.81 mg/dL (0.67-1.17) 06/27/18 20:32 Est GFR ( Amer) 116.8 (>60) 06/27/18 20:32 Est GFR (Non-Af Amer) 96.6 (>60) 06/27/18 20:32 BUN/Creatinine Ratio 16.0 (8-20) 06/27/18 20:32 Glucose 151 mg/dL (70-100) H 06/27/18 20:32 Calcium 8.9 mg/dL (8.6-10.3) 06/27/18 20:32 Phosphorus 2.5 mg/dL (2.5-5.0) 06/27/18 20:32 Magnesium 2.0 mg/dL (1.9-2.7) 06/27/18 20:32
[2018-06-28] MEDS ORDERED: Midazolam* 1 MG/ML 10 ML VIAL (10 MG) ONE (17:42)
[2018-06-28] MEDS ORDERED: fentaNYL* 50 MCG/ML 2 ML VIAL (100 MCG VIAL) ONE (17:42)
--- NOTE | 2018-06-28 18:09 | PN ---
Subjective Date of Service: 06/28/18 Interval History: patient seen earlier this morning, he was still complaining of increase pain and abdominal distention. CT scan reviewed and did reveal 9.4 cm dilation of the cecum. Repeat AXR showed some improvement but persistent dilations. Surgery consulted and recommended GI evaluations. GI Consulted and recommend tap water enema (one given) and awaiting full recommendation from GI. Family History: Unchanged from Admission Objective Active Medications: Acetaminophen (Tylenol Tab*) 975 mg PO Q8H [facility] Last Admin: 06/28/18 14:19 Dose: Not Given Apixaban (Eliquis*) 2.5 mg PO BID [facility] Last Admin: 06/28/18 11:40 Dose: Not Given Bisacodyl (Dulcolax Supp*) 10 mg [place] DAILY PRN PRN Reason: constipation Cyclobenzaprine HCl (Flexeril Tab*) 10 mg PO TID PRN PRN Reason: SPASMS Diphenhydramine HCl (Benadryl Iv*) 12.5 mg IV Q6H PRN PRN Reason: PRURITIS Docusate Sodium (Colace Cap*) 100 mg PO BID [facility] Last Admin: 06/28/18 09:29 Dose: Not Given Lactulose (Lactulose*) 30 ml PO Q6H PRN PRN Reason: constipation Last Admin: 06/27/18 15:48 Dose: 30 ml Magnesium Hydroxide (Milk Of Magnesia Liq*) 30 ml PO BID [facility] Last Admin: 06/28/18 09:29 Dose: Not Given Magnesium Hydroxide (Milk Of Magnesia Liq*) 30 ml PO Q6H PRN PRN Reason: constipation Morphine Sulfate (Morphine Inj (Syringe))*) 2 mg IV Q2H PRN PRN Reason: PAIN Last Admin: 06/26/18 21:41 Dose: 2 mg Ondansetron HCl (Zofran Inj*) 4 mg IV Q6H PRN PRN Reason: nausea Last Admin: 06/28/18 01:18 Dose: 4 mg Ondansetron HCl (Zofran Tab*) 4 mg PO Q6H PRN PRN Reason: NAUSEA Oxycodone HCl (Roxycodone Tab*) 10 mg PO Q4H PRN PRN Reason: SEVERE PAIN Last Admin: 06/27/18 11:09 Dose: 10 mg Oxycodone/Acetaminophen (Percocet 5/325 Tab*) 1 tab PO Q4H PRN PRN Reason: PAIN Polyethylene Glycol/Electrolytes (Miralax*) 17 gm PO DAILY PRN PRN Reason: Constipation Simethicone (Mylicon Tab*) 80 mg PO Q6H PRN PRN Reason: DYSPEPSIA Last Admin: 06/27/18 22:37 Dose: 80 mg Vital Signs - 8 hr 06/28/18 06/28/18 06/28/18 11:29 16:00 16:02 Temperature 97.7 F 99.6 F 99.6 F Pulse Rate 101 91 91 Respiratory 17 24 24 Rate Blood Pressure 152/67 132/62 132/62 (mmHg) O2 Sat by Pulse 92 95 95 Oximetry Oxygen Devices in Use Now: None Appearance: Awake, alert. mild distress secondary to pain and abdominal distention Eyes: No Scleral Icterus, - - EOMI Ears/Nose/Mouth/Throat: NL Teeth, Lips, Gums, Mucous Membranes Moist Neck: NL Appearance and Movements; NL JVP, Trachea Midline Respiratory: Symmetrical Chest Expansion and Respiratory Effort, Clear to Auscultation Cardiovascular: NL Sounds; No Murmurs; No JVD, RRR Abdominal: - - rigid, distended. Extremities: No Edema, - - right hip incision clean, dry and intact. Neurological: Alert and Oriented x 3 Result Diagrams: 06/28/18 06:40 06/27/18 20:32 Assess/Plan/Problems-Billing Assessment: 62 year old male admitted for right hip TKA, developed post op ileus and abdominal pain - Patient Problems (1) H/O total hip arthroplasty Current Visit: Yes Status: Acute Code(s): Z96.649 - PRESENCE OF UNSPECIFIED ARTIFICIAL HIP JOINT SNOMED Code(s): 471555082998 Comment: - post op Day # 2 - Minimize opitate in the setting of post op ileus - DVT prophylaxis, acitivty as per ortho (2) Ileus, postoperative Current Visit: Yes Status: Acute Code(s): K91.89 - OTH POSTPROCEDURAL COMPLICATIONS AND DISORDERS OF DGSTV SYS; K56.7 - ILEUS, UNSPECIFIED SNOMED Code(s): 896096320 Comment: - Keep NPO - IVF - Tap water enema - Surgery consulted no intervetions, recommeded GI input - GI consulted will follow up full final recommendations (3) Abdominal pain Current Visit: Yes Status: Acute Code(s): R10.9 - UNSPECIFIED ABDOMINAL PAIN SNOMED Code(s): 81679627 Comment: - secondary to post ileus - Keep NPO - IVF - Tap water enema - Surgery consulted no intervetions, recommeded GI input - GI consulted will follow up full final recommendations (4) DVT prophylaxis Current Visit: Yes Status: Acute Code(s): KCC5108 - SNOMED Code(s): 695230862 Comment: - on cora
--- NOTE | 2018-06-28 18:46 | PN ---
Progress Note - Progress Note Date of Service: 06/28/18 Note: GI Brief Colonoscopy Note indication: ileus/Olgivie, failed conservative RX Unprepped colonoscopy, cecum easily reached in about 1min. Poor prep, slightly dusky cecum but mucosa that is visible appeared pink elsewhere Air suctioned TI normal x5cm 14F rectal tube placed via guidewire Recommendations: rectal tube to gravity flush 20cc NS q6 hours if not resolving recommend 1.5-2mg neostigmine. Needs to be on telemetry for this and atropine at bedside for bradycardia. If not resolving after recommend surgRosa Elizabeth DO 06/28/18 [id number]
[2018-06-28] MEDS: D5W 1/2 NS 1000 ML BAG* 1,000 ML IV SCH (20:05)
--- NOTE | 2018-06-28 20:50 | CONS ---
CC: Dr. Randall; Dr. Jimbo Johns * SURGICAL CONSULT NOTE: DATE OF CONSULT: 06/28/18 ATTENDING SURGEON: Dr. Avery Hartley. CHIEF COMPLAINT: Abdominal pain. HISTORY OF PRESENT ILLNESS: This is a 62-year-old generally healthy male with end stage right hip arthritis, who underwent right total hip arthroplasty with Dr. Randall on 06/26/18. He has had a moderate amount of oxycodone in the postoperative period. His postoperative course has been unremarkable except for the development of significant abdominal pain yesterday, 06/27/18. Plain films and then a noncontrast CT of the abdomen and pelvis were obtained, which showed significant colonic dilatation beginning at the cecum and extending to the proximal and mid descending colon. There was no specific transition point and the distal sigmoid colon appears normal in caliber with a mix of stool and gas present, but no inflammatory change. The patient has never undergone screening colonoscopy nor does he have any prior history of bowel problems i.e., constipation, change in stool or blood per rectum. The patient states that his pain is present throughout the abdomen but particularly in the lower abdomen. He has passed a little bit of flatus and some stool both yesterday and today, which he describes as being liquid. He rates his pain as a 10+ on a scale of 0 to 10. He did have some vomiting yesterday, but none last night or today. He was made n.p.o. by the hospitalist. Repeat plain film today shows persistent though slightly improved colonic distention. PHYSICAL EXAM: General: The patient is sitting up in the recliner and appears in [id number] distress. His T-max is 99.6. His vital signs are stable with heart rate ranging from 71 to 101. Heart: Regular rate and rhythm. Lungs : Clear to auscultation anteriorly. Abdomen: Mildly distended and tympanitic. There are bowel sounds present, but they are high pitched with rushes and gurgles. The abdomen is diffusely tender. There is no guarding or rigidity per se. DIAGNOSTIC STUDIES/LAB DATA: Laboratory is remarkable for mild leukocytosis, which is stable from yesterday and mild anemia, which is stable. Chemistries are essentially normal other than mild hyperglycemia. His plain films and CT scan were reviewed personally and with my attending Dr. Hartley. IMPRESSION: Colonic distention without evidence of obstruction. PLAN: Options would include enemas per rectum or consideration of decompression colonoscopy. Case was discussed with Dr. Hartley who in turn discussed it further with the hospitalist covering and they will be in touch with GI for that consultation and consideration for colonoscopy. There were no surgical indications at this point, but we will continue to follow. ARELY TAVERAS [id number]/[facility] #: [id number] YI
--- NOTE | 2018-06-28 21:39 | CONS ---
CONSULTATION REPORT: DATE OF CONSULT: 06/28/18 REQUESTING: Dr. Randall. 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 HISTORY OF PRESENT ILLNESS: This is a pleasant 62-year-old male who is admitted for endstage osteoarthritis of his right hip and then proceeded with a right total hip arthroplasty. He did well postop, but he has had difficulties with his bowels over the last few days with increasing distention and lack of movement. He states that today the pain is more intense. He is having mostly right lower quadrant pain to right upper quadrant pain, cramping, 6/10 to 9/10, episodic. Nothing seems to make it better or worse. He has not passed much gas today. He did have some liquid stool movement. He denies any black or blood in the stool. He has never had a colonoscopy in the past. He admits to frequent heartburn on a regular basis, but does not take any medicine for it [id number] otherwise. Denies any dysphagia, odynophagia, no nausea or emesis. Prior to this his weight had been stable. No loss or no gain. Remainder of the 14-point review of systems is grossly negative. PAST MEDICAL HISTORY: Osteoarthritis. PAST SURGICAL HISTORY: None. HOME MEDICATIONS: Tramadol as needed. ALLERGIES: None. FAMILY HISTORY: Father had colorectal cancer at a relatively early age. SOCIAL HISTORY: Smokes 2 to 4 cigarettes a day. Denies alcohol use. REVIEW OF SYSTEMS: The remainder of the 14-point review of systems is grossly negative. PHYSICAL EXAM: Vital Signs: Blood pressure 132/62, pulse is 91, respiratory rate of 24, oxygen is 95% on room air. T-max is 99.6. In general, alert, slightly uncomfortable male, oriented x3. HEENT: Atraumatic, normocephalic. Pupils equal, round, reactive to light. Extraocular movements are intact. Conjunctivae are pink. Sclerae are anicteric. Cardiovascular: Regular rate and rhythm. S1, S2. Pulmonary: Clear to auscultation bilaterally. Abdomen: Distended, tenderness to palpation in the right lower quadrant greater than other quadrants, but diffuse throughout. No distinct rebound. Some guarding with right lower quadrant palpation. Bowel sounds hypoactive. Extremities: No clubbing, no cyanosis, no edema. Skin is without rash. Psych: Appropriate mood and affect. LABORATORY DATA: Hemoglobin is 12.1, WBC count 13.2. Sodium 139, creatinine 0.81, BUN is 13, glucose 151. He had a CT of the abdomen and pelvis done on 06/27/18, with the cecum and transverse colon continue to be noted to be enlarged. The cecum was dilated to about 9.4 cm with gradual tapering with now a definitive transition point. He had an abdominal x-ray on 06/28/18 that only showed slight improvement on radiology read; however, on my personal read seems grossly similar to prior. 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 1. Ileus, possible Tyree. The patient has never had a colonoscopy. At this point, he was failing conservative therapy with n.p.o. with holding of narcotics as much as possible, optimization of electrolytes and IV hydration. We discussed multiple possibilities going forward including neostigmine, which does have significant bradycardia and potentially some cardiac issues also cannot rule out completely mechanical obstruction although it did not seem to be on the CT scan. He has never had a colonoscopy and he has a family history of colorectal cancer. Other potential options would be to attempt endoscopic decompression with potential placement of a rectal tube. We discussed the risks benefits and alternative to all these and the patient would like to proceed with endoscopic decompression this evening. If this fails, I would recommend to continue conservative therapy. If not improving, we would consider neostigmine at a dose of 1.5 to 2 mg. This needs to be done on cardiac monitoring and atropine needs to be at the bedside for bradycardia. 2. Family history of colorectal cancer. The patient will ultimately need a full colonoscopy with full prep in the future. 3. Right hip replacement per primary team. [id number]/[facility] #: [id number] [facility]
--- NOTE | 2018-06-29 00:43 | PRO ---
CC: Ellie Randall MD; Jimbo Johns MD * COLONOSCOPY REPORT: DATE OF PROCEDURE: 06/28/18 INDICATION FOR PROCEDURE: Ileus and Deforest syndrome. PROCEDURE PERFORMED: Colonoscopy to the terminal ileum with rectal tube placement. MEDICATIONS GIVEN: Include 4 mg IV midazolam, 50 mcg IV fentanyl. DESCRIPTION OF PROCEDURE: After the colonoscopy procedure including the risks, benefits, and alternatives with the risks not limited to perforation, surgery, missed lesions, and/or were explained to the patient, written informed consent was obtained. IV medication was given and a rectal exam was performed. The rectal exam was unremarkable. The adult Olympus colonoscope was then inserted into the patient's rectum and advanced very carefully and rapidly to the cecum. The cecum was reached in about 1 minute and we were able to traverse the colon with ease. There was distention noted from basically the mid transverse colon to the descending colon and a little bit in the cecum. No gross mechanical obstruction was identified; however, the preparation was poor. I irrigated the cecum and there was some slight duskiness to the cecum. However, the mucosa was pink otherwise throughout the colon. I briefly intubated the terminal ileum. This was patent without any signs of obstruction for about 5 to 6 cm. I then returned to the cecum. All the air had been removed from the colon along the way. I then introduced a guidewire through the scope and advanced the guidewire while simultaneously pulling out and suctioning air with the colonoscope. Eventually, the colonoscope was removed and the guidewire was left in place. Next, a 14-Frisian decompression tube was advanced over the guidewire and left in place in the colon with likely position in the cecum to ascending colon. Post procedure, the patient's abdomen was vastly improved and soft and his pain had been dramatically improved. The patient tolerated the procedure well. He returned to the recovery room in stable condition. IMPRESSION: 1. Colonoscopy to the terminal ileum. 2. Successful decompression of ileus/Deforest syndrome. 3. No gross mechanical obstruction, but preparation poor, unable to identify lesions. 4. A 14-Frisian rectal decompression tube left in place. RECOMMENDATIONS: At this point, the rectal tube was placed and taped opposite the surgical site. Advised both nursing staff and providers to keep the rectal tube on the opposite side at all times, away from the surgical area. Recommend flushing the tube with 20 cc of normal saline roughly every 6 hours. At this point, he seems to feel much better. The rectal tube will likely eventually fall out. If he does develop recurrence of Deforest's and ileus is not resolving , would recommend 1.5 to 2 mg of neostigmine. This needs to be done on a telemetry floor with the patient on telemetry. In addition, atropine needs to be at bedside for bradycardia. If that does not resolve, then we would recommend surgical approach at that point. However, he seems to be doing well with the rectal tube at this time. [id number]/[facility] #: [id number] [facility]D
[2018-06-29] MEDS: Acetaminophen TAB* 325 MG PO SCH (06:17)
[2018-06-29] MEDS: D5W 1/2 NS 1000 ML BAG* 1,000 ML IV SCH (06:19)
[2018-06-29] MEDS: Apixaban* 2.5 MG TAB PO SCH (08:14)
[2018-06-29] MEDS: Magnesium Hydroxide LIQ* 30 ML UDC PO SCH (08:14)
[2018-06-29] MEDS: Docusate CAP* 100 MG PO SCH (08:14)
[2018-06-29 08:19] LABS: ABS Basophils 0 10^3/ul (0-0.2); ABS Eosinophils 0 10^3/ul (0-0.6); ABS Lymphocytes 1.4 10^3/ul (1.0-4.8); ABS Monocytes 1.4 10^3/ul (0-0.8); ABS Neutrophils 9.5 10^3/ul (1.5-7.7); ABS Nucleated RBC 0 10^3/ul; Eosinophil % 0.2 %; Hematocrit 32 % (36-46); Hemoglobin 11.2 g/dL (14.0-18.0); Lymphocyte % 11.4 %; Mean Corpuscular HGB Conc 35 g/dL (31-36); Mean Corpuscular Hemoglobin 31 pg (27-31); Mean Corpuscular Volume 90 fL (80-94); Nucleated Red Blood Cells % 0; Platelet Count 217 10^3/uL (150-450); Red Blood Count 3.58 10^6 /uL (4.18-5.48); Red Cell Distribution Width 13 % (10.5-15); White Blood Count 12.3 10^3/uL (3.5-10.8)
[2018-06-29 08:31] LABS: BUN/Creatinine Ratio 16.9 (8-20); Calcium 8.3 mg/dL (8.6-10.3); EGFR African American 168.4 (>60); EGFR Non-African American 139.2 (>60); Magnesium 1.8 mg/dL (1.9-2.7); Phosphorus 1.6 mg/dL (2.5-5.0); Potassium 3.4 mmol/L (3.5-5.0)
--- NOTE | 2018-06-29 08:33 | PN ---
Progress Note - Progress Note Date of Service: 06/29/18 Note: LBO Afeb, VS noted Feels much better, minimal discomfort this AM. Hungry voiding Had decompressive colonoscopy last night Exam--abd soft, non-tender, non-distended Consult of Efrain Carlton reviewed and discussed. Impr: Colonic pseudo-obstruction, now s/p decompression Doing well, bowel regimen per gastro No need ofr sugical intervention Please call if we can be of further assistance
[2018-06-29] MEDS ORDERED: Potassium Chlor TAB* 20 MEQ TAB.ER PO ONE (08:45)
[2018-06-29] MEDS ORDERED: Magnesium Sulfate 2 GM IV* 2 GM/50 ML BAG IVPB ONE (08:45)
[2018-06-29] MEDS ORDERED: Potassium Phosphate IV* 15 MMOLE in NS 0.9% 250 ML* 250 ML IVPB ONE (09:30)
[2018-06-29] MEDS ORDERED: Potassium & Sodium Phos 250MG* = 1 PACKET PO ONE (11:07)
--- NOTE | 2018-06-29 11:26 | DS ---
Orthopedic Discharge Summary - Discharge Summary Date of Admission:06/26/18 Date of Discharge: 06/29/18 Date of Surgery: 06/26/18 Attending Orthopedic Provider: Dr. Randall Pre-operative Diagnosis: DJD right hip Operative Procedure: Right total hip arthroplasty Condition of Patient: Stable History: VEENA RAMOS is a 62 year old M with years of increasingly severe right hip pain. Patient has failed conservative management and has elected to undergo a right total hip replacement Hospital Course: VEENA was admitted to [facility] on 06/26/18. Patient underwent a right total hip replacement without complication followed by a brief recovery in PACU and transfer to the Short Stay Surgical Unit in stable condition. Our hospitalist service, physical therapy and occupational therapy also participated in this patients care. Post-op day 1: patient was alert and in no acute distress. Dressing was clean, dry and intact. Operative extremity dorsiflexion and plantarflexion intact, sensation intact to light touch distally, DP2+. He complained of abdominal distention and pain and work up revealed what appeared to be an ileus. He was evaluated by GI service and underwent colonoscopy, decompression to the terminal cecum on 06/28/18. His abdominal pain and distention had then resolved post procedure. He had no further GI symptoms. Post-op day two: dressing was changed, incision was clean , dry and intact. POST of day three: Patient was deemed to be medically and orthopedically stable for discharge home. Physical therapy goals were met. He had also recieved IV magnesium and potassium prior to discharge home 06/29/18 managed by the hospitalist. Home Medications Medication Instructions Recorded Confirmed Type Hydrocodone-Acetamin 5-325 mg 5 - 325 mg PO Q6H PRN 06/18/18 06/26/18 History Acetaminophen TAB* Tylenol TAB* 975 mg PO Q8H tab 06/29/18 Rx Apixaban* [Eliquis*] 2.5 mg PO BID #60 tab 06/29/18 Rx Docusate CAP* [Colace Cap*] 100 mg PO BID #30 cap 06/29/18 Rx Discharge home 06/29/18 WBAT RLE posterior hip precautions Eliquis for DVT prophylaxis Patient declined narcotics for pain, wants to use Tylenol only Outpatient PT Follow up with Dr. Randall in 10-14 days as scheduled.
[2018-06-29 11:34] VITALS: BP 126/59
--- NOTE | 2018-06-29 15:02 | PN ---
Subjective Date of Service: 06/29/18 Interval History: Patient earlier this morning. I was called last night after his colonoscopy that the patient is hungry and would like to eat, and this morning called again he wants to eat and wants to go home. Patient seen this morning at bedside. Frustrated that he has not had anything to eat. Also demanding that he wants to go home by noon no matter what! He is passing gas and denies any abdominal pain this morning. Family History: Unchanged from Admission Objective Vital Signs - 8 hr 06/29/18 06/29/18 06/29/18 07:33 08:00 11:21 Temperature 98.6 F 98.9 F Pulse Rate 91 78 Respiratory 16 16 16 Rate Blood Pressure 150/70 126/59 (mmHg) O2 Sat by Pulse 94 94 97 Oximetry Oxygen Devices in Use Now: None Appearance: awake, comfortable but frustrated regarding his diet and hunger Eyes: No Scleral Icterus, - - EOMI Ears/Nose/Mouth/Throat: NL Teeth, Lips, Gums, Mucous Membranes Moist Neck: NL Appearance and Movements; NL JVP, Trachea Midline Respiratory: Symmetrical Chest Expansion and Respiratory Effort, Clear to Auscultation Cardiovascular: NL Sounds; No Murmurs; No JVD, No Edema Abdominal: - - Bowel sound present but sluggish, non tender no rebound Extremities: - - right hip incision dry and intact Neurological: Alert and Oriented x 3 Result Diagrams: 06/29/18 07:52 06/29/18 07:56 Assess/Plan/Problems-Billing Assessment: 62 year old male admitted for right hip TKA, developed post op ileus and abdominal pain - Patient Problems (1) Ileus, postoperative Status: Acute Code(s): K91.89 - OTH POSTPROCEDURAL COMPLICATIONS AND DISORDERS OF DGSTV SYS; K56.7 - ILEUS, UNSPECIFIED SNOMED Code(s): 768099783 Comment: - s/p colonoscopy and decompression. - Less distended. Patient is insisting on leaving today before noon - I advised patient that about 80% of ileus resolve after decompression but he has 20% chance of reoccurrence. I advised him to stay for another 24hrs to ensure he can tolerate diet, however he declined. I see no reason why he can not go home with the understanding that he may have 20% of reoccurence where he will have to return to the ER (2) Abdominal pain Status: Acute Code(s): R10.9 - UNSPECIFIED ABDOMINAL PAIN SNOMED Code(s): 30820730 Comment: - secondary to post ileus, resolved with the resolution of his ileus (3) H/O total hip arthroplasty Status: Acute Code(s): Z96.649 - PRESENCE OF UNSPECIFIED ARTIFICIAL HIP JOINT SNOMED Code(s): 222554129741 Comment: - post op Day # 3 - Minimize opitate in the setting of post op ileus - DVT prophylaxis, acitivty as per ortho (4) Disorder of electrolytes Status: Acute Code(s): E87.8 - OTH DISORDERS OF ELECTROLYTE AND FLUID BALANCE , NEC SNOMED Code(s): 250853912 Comment: - Supplmented his Mag with 2 mg IV, Potassium PO and Kphos, however patient did not want to stay until the completion of his Kphos, he was given po Neutrophos 2 packet instead (5) DVT prophylaxis Status: Acute Code(s): YLR6004 - SNOMED Code(s): 345184447 Comment: - on eliquis Status and Disposition: Patients wants to go home!!!
== END 2018-06-29 13:00 | disposition home or self-care (01) | DRG 470 ==
LOC: AA 10:12 → SSU 19:33
PROVIDERS: ADMIT Orthopaedic Surgery Adult Reconstructive Orthopaedic Surgery; ATTEND Orthopaedic Surgery Adult Reconstructive Orthopaedic Surgery
PROC: 0SR904A Replacement of Right Hip Joint with Ceramic on Polyethylene Synthetic Substitute, Uncemented, Open Approach (ICD-10-PCS; principal; 2018-06-26 13:30)
PROC: 0D7H8ZZ Dilation of Cecum, Via Natural or Artificial Opening Endoscopic (ICD-10-PCS; 2018-06-28)
PROC: 0D9 Gastrointestinal System, Drainage (ICD-10-PCS; 2018-06-28)
DX: M16.11 Unilateral primary osteoarthritis, right hip (principal); K56.7 Ileus, unspecified; F17.210 Nicotine dependence, cigarettes, uncomplicated; Z96.651 Presence of right artificial knee joint; D64.9 Anemia, unspecified; Z80.0 Family history of malignant neoplasm of digestive organs; R00.1 Bradycardia, unspecified; R73.9 Hyperglycemia, unspecified; E87.8 Other disorders of electrolyte and fluid balance, not elsewhere classified; Z82.3 Family history of stroke; Z83.3 Family history of diabetes mellitus; Z82.49 Family history of ischemic heart disease and other diseases of the circulatory system; Z72.89 Other problems related to lifestyle; Z79.01 Long term (current) use of anticoagulants
CPT/HCPCS: 36415; 72170; 74019; 74176; 80048; 83735; 84100; 85014; 85018; 85025; 85049; 88304; 88311; 99156; 99157; A9270-GY; C1776; G8978-GP-CI; J0690; J1100; J2250; J2270; J2405; J2704; J2795; J3010; J3475

== ENCOUNTER 2018-07-13 16:30 | Emergency (ER) | payer OTHER ==
--- OUTSIDE RECORDS SUMMARY | 2018-07-13 16:42 | XMS REPORT | Continuity of Care Document ---
:1955 External Reference #:[id number] Author Name Yolande Freed Care Team Providers Name Role Phone Jimbo Johns MD Primary Care Physician Unavailable Payers Date Identification Numbers Payment Provider Subscriber Policy Number: [id number] [employer] Mora White PayID: [id number] [address] [place] [address] Advance Directives Description No Information Available Problems Active Problems Provider Date Localized, primary osteoarthritis of the pelvic Ellie Randall M.D. Onset: 03/2018 region and thigh Family History Date Family [...] 3 a day cigarettes/day) Smoking Status Reviewed: 07/06/18 Light tobacco smoker (10 or fewer 3 a day cigarettes/day) Exercise Type/Frequency Exercises regularly Allergies, Adverse Reactions, Alerts Description No Known Drug Allergies Medications Active Medications SIG Qnty Indications Ordering Provider Date Tramadol HCL 1 tablets by 20tabs Ellie Randall, 06/18/2018 50mg mouth every 6 M.D. Tablets hours as needed pain History Medications No Active Unknown 06/18/2018 - Medications 06/18/2018 Hydrocodone-Acetamin 1 or 2 tabs by 60tabs M16.11 Ellie Randall, 2018 - ophen mouth every 6-8 M.D. 06/17/2018 5-325mg Tablets hours as needed for pain Tramadol HCL 1-2 tablets by Unknown - 50mg mouth every 6 06/07/2018 Tablets hours as needed pain Celecoxib 1 by mouth every Unknown - 200mg day 06/17/2018 Capsules Immunizations Description No Information Available Vital Signs Date Vital Result Comment 07/06/2018 9:02am Height 69 inches 5'9" Weight 188.00 lb Heart Rate 72 /min BP Systolic 146 mmHg BP Diastolic 74 mmHg Respiratory Rate 18 /min Body Temperature 98.2 F Pain Level 4 BMI (Body Mass Index) 27.8 kg/m2 06/18/2018 8:41am Height 69 inches 5'9" Weight [...] Date Facility Test Result H/L Range Note Urinalysis Profile 06/18/2018 [facility] [place] [address] [phone] Urine Appearance Cloudy Urine Specific [place] 1.020 N 1.010-1.030 Urine pH 5.0 N 5-9 Urine Urobilinogen Negative Negative Urine Ketones Negative Negative Urine Protein Negative Negative Urine Leukocytes Negative Negative Urine Blood Negative Negative Urine Nitrite Negative Negative Urine Bilirubin Negative Negative Urine Glucose Negative Negative Inr/Protime 06/18/2018 [facility] Inr [address] N 0.77-[address] [place] [address] [phone] Laboratory test 06/18/2018 [facility] Partial 29.9 seconds N 26.0-36.[address] [place] [address] PTT [phone] Type & Screen 06/18/2018 [facility] Patient [place] [address] [phone] Antibody Screen NEGATIVE Comp Metabolic Panel 06/18/2018 [facility] Sodium 138 mmol/L N 135-[address] [place] [address] [phone] Potassium 4.3 mmol/L N 3.5-5.0 Chloride 104 mmol/L N 101-111 Co2 Carbon Dioxide 26 mmol/L N 22-32 Anion Gap 8 mmol/L N 2-11 Glucose 91 mg/dL N 70-100 Blood Urea Nitrogen 13 mg/dL N 6-24 Creatinine 0.84 mg/dL N 0.67-1.17 BUN/Creatinine Ratio 15.5 N 8-20 Calcium 9.6 mg/dL N 8.6-10.3 Total Protein 7.0 g/dL N 6.4-8.9 Albumin 4.5 g/dL N 3.2-5.2 Globulin 2.5 g/dL N 2-4 Albumin/Globulin Ratio 1.8 N 1-3 Total Bilirubin 0.50 mg/dL N 0.2-1.0 Alkaline Phosphatase 74 U/L N 34-104 Alt 43 U/L N 7-52 Ast 24 U/L N 13-39 Egfr Non- 92.6 >60 Egfr 112.0 >60 1 CBC Auto Diff 06/18/2018 [facility] White Blood 9.7 10^3/uL N 3.5-10.[address] [place] [address] [phone] Red Blood Count 4.69 10^6/uL N 4.18-5.48 Hemoglobin 14.7 g/dL N 14.0-18.0 Hematocrit 42 % N 36-46 Mean Corpuscular Volume 90 fL N 80-94 Mean Corpuscular Hemoglobin 31 pg N 27-31 Mean Corpuscular HGB Conc 35 g/dL N 31-36 Red Cell Distribution Width 13 % N 10.5-15 Platelet Count 244 10^3/uL N 150-450 Mean Platelet Volume 8.1 fL N 7.4-10.4 Abs Neutrophils 5.6 10^3/uL N 1.5-7.7 Abs Lymphocytes 3.0 10^3/uL N 1.0-4.8 Abs Monocytes 1.0 10^3/uL High 0-0.8 Abs Eosinophils 0.1 10^3/uL N 0-0.6 Abs Basophils 0 10^3/uL N 0-0.2 Abs Nucleated RBC 0 10^3/uL Granulocyte % 57.2 % Lymphocyte % 31.4 % Monocyte % 10.0 % Eosinophil % 1.1 % Basophil % 0.3 % Nucleated Red Blood Cells % 0.2 Urine Culture And 06/18/2018 [facility] Urine Culture SEE RESULT [address] [place] [address] [phone] Laboratory test 06/08/2018 [facility] PSA Screening 1.985 ng/mL N 0-4.0 [address] [place] [address] [phone] Comp Metabolic 06/08/2018 [facility] Sodium 140 mmol/L N 135- [address] [place] [address] [phone] Potassium 4.7 mmol/L N 3.5-5.0 Chloride 104 [...] Egfr Non- 96.6 >60 Egfr 116.8 >60 4 CBC Auto Diff 06/08/2018 [facility] White Blood 8.8 10^3/uL N 3.5-10.[address] [place] [address] [phone] Red Blood Count 4.87 10^6/uL N 4.18-5.48 [...] Cells % 0 Laboratory test 06/08/2018 [facility] TSH (Thyroid 3.59 mcIU/mL N 0.34-5.[address] [place]) [place] [address] [phone] 1 Because ethnic data is not always readily [...] 15-29 5 Kidney failure <15 (or dialysis) 2 SEE RESULT BELOW Name: TIM WHITE : [address]: Ellie Randall MD Acct: [id number] Unit: [id number] AGE: 62 Location: [facility] Re06/18/18 SEX: M Status: REG REF SPEC: [id number] MOISE: 06/18/[address] [facility] [address]: Ellie Randall MD REQ: [id number] RECD: 06/18/18 STATUS: BROOKE [facility]OR[facility] DR: Jimbo Johns MD _ SOURCE: URINE SPDESC: ORDERED: Urine Culture QUERIES: Urine Source: Random Procedure Result Reported Site Urine Culture Final 06/19/18- 1459 ML No growth of clinically significant organisms * ML - Main Lab . END OF REPORT DEPARTMENT OF PATHOLOGY, [address] [place] [address] Patric Peterson M.D. Director [facility] # [id number] 3 Serum levels of PSA measured using the Marlo Glendale DXI Hybritech immunoassay should not be interpreted as absolute evidence of the presence or absence of disease. The PSA value should be used in conjunction with other pertinent clinical diagnostic procedures. The values obtained with different assay methods or kits cannot be used interchangeably. 4 Because ethnic data is not always readily [...] 5 Kidney failure <15 (or dialysis) Procedures Date Code Description Status 06/26/2018 11335 THR Total Hip Replacement Completed 06/26/2018 85451 THR Total Hip Replacement Completed 06/26/2018 32770 THR Total Hip Replacement Completed Encounters Type Date Location Provider Dx Diagnosis Office Visit 06/29/2018 [facility] K91.89 Oth postprocedural 10:27a donavon Song, complications and Hospitalists Emigdio disorders of dgstv sys K56.7 Ileus, unspecified R10.9 Unspecified abdominal pain E87.8 Oth disorders of electrolyte and fluid balance, NEC Z96.641 Presence of right artificial hip joint Office 06/28/2018 [facility] K91.89 Oth postprocedural Visit 10:27a donavon Song M.D. complications and Hospitalists disorders of dgstv sys R10.9 Unspecified abdominal pain Z96.641 Presence of right artificial hip joint Office Visit 06/27/2018 [facility] R10.9 Unspecified 10:26a donavon Song M.D. abdominal pain Hospitalists R11.2 Nausea with vomiting, unspecified R14.0 Abdominal distension (gaseous) R19.7 Diarrhea, unspecified Z96.641 Presence of right artificial hip joint Office Visit 06/07/2018 [facility] Primary Jimbo Z01.818 Encounter for 9:00a Tisha Johns MD other preprocedural examination M16.11 Unilateral primary osteoarthritis, right hip M25.551 Pain in right hip F17.200 Nicotine dependence, unspecified, uncomplicated Z12.11 Encounter for screening for malignant neoplasm of colon Z12.5 Encounter for screening for malignant neoplasm of prostate Office Visit 05/18/2018 10:30a [facility] Ellie Randall, M25.551 Pain in right [facility] M.[facility]. hip M16.11 Unilateral primary osteoarthritis, right hip Plan of Treatment Future Appointment(s):08/06/2018 8:45 am - Ellie Randall M.D. at [facility]06/10/2019 9:30 am - Jimbo Johns MD at [facility] Primary Care07/06/2018 - Ellie Randall M.D.Z96.641 Presence of right artificial hip jointFollow up:Follow up: 4 ovbwcH64.551 Pain in right hip
[2018-07-13 16:50] VITALS: BP 139/77
--- NOTE | 2018-07-13 17:00 | UC ---
Throat Pain/Nasal Oliverio HPI - HPI Summary HPI Summary: Pt c/o gradual onset of sore throat. Pt was recently hospitalized for hip replacement. Pt c/o white coating in mouth on tongue an din back of throat. Is unsure if he had antibiotics while hospitalized. - History of Current Complaint Stated Complaint: SORE THROAT Time Seen by Provider: 07/13/18 16:43 Hx Obtained From: Patient Onset/Duration: Gradual Onset, Lasting Days, Still Present, Worse Since - onset Severity: Severe Pain Intensity: 9 Cough: None Associated Signs & Symptoms: Positive: Dysphagia - Epiglottits Risk Factors Epiglottis Risk Factors: Negative - Allergies/Home Medications Allergies/Adverse Reactions: Allergies Allergy/AdvReac Type Severity Reaction Status Date / Time No Known Allergies Allergy Verified 07/13/18 16:47 Home Medications: Home Medications Acetaminophen TAB* [Tylenol TAB*] 500 mg PO Q8H PRN 07/13/18 [History Confirmed 07/13/18] PMH/Surg Hx/FS Hx/Imm Hx Previously Healthy: Yes Cardiovascular History: Cardiac Disease Other History Of: Negative For: HIV, Hepatitis B, Hepatitis C - Surgical History Surgical History: Yes Surgery Procedure, Year, and Place: RIGHT ARM SURGERY FOR FB AND LACERATION. RIGHT CHANDAN. right hip replacement - Family History Known Family History: Positive: Cardiac Disease - Social History Occupation: Retired Lives: With Family Alcohol Use: None Substance Use Type: None Substance Use Comment - Amount & Last Used: WILL REFRAIN 3 DAYS PREOP Smoking Status (MU): Former Smoker Type: Cigarettes Amount Used/How Often: 2-4 CIGS PER DAILY Length of Time of Smoking/Using Tobacco: 40 yrs Have You Smoked in the Last Year: Yes When Did the Patient Quit Smoking/Using Tobacco: 06/2018 Household Exposure Type: Cigarettes - Immunization History Most Recent Influenza Vaccination: November 2014 Most Recent Pneumonia Vaccination: NEVER Vaccination Up to Date: Yes Review of Systems All Other Systems Reviewed And Are Negative: Yes Constitutional: Positive: Negative Skin: Positive: Negative Eyes: Positive: Negative ENT: Positive: Sore Throat Respiratory: Positive: Negative Cardiovascular: Positive: Negative Gastrointestinal: Positive: Negative Genitourinary: Positive: Negative Motor: Positive: Negative Neurovascular: Positive: Negative Musculoskeletal: Positive: Negative Neurological: Positive: Negative Psychological: Positive: Negative Is Patient Immunocompromised?: No Physical Exam Triage Information Reviewed: Yes Appearance: Ill-Appearing Vital Signs: Initial Vital Signs Temp 99.0 F 07/13/18 16:45 Pulse 80 07/13/18 16:45 Resp 17 07/13/18 16:45 BP 139/77 07/13/18 16:45 Pulse Ox 97 07/13/18 16:45 Vital Signs Reviewed: Yes Eye Exam: Normal ENT Exam: Other ENT: Positive: Other - thick white coating on tongue, and roof of mouth. Dental Exam: Normal Neck exam: Normal Respiratory Exam: Normal Cardiovascular Exam: Normal Musculoskeletal Exam: Normal - recently had hip replacement, is using cane with ambulation Neurological Exam: Normal Psychological Exam: Normal Skin Exam: Normal Throat Pain/Nasal Course/Dx - Differential Dx/Diagnosis Differential Diagnosis/HQI/PQRI: Tonsillitis Provider Diagnosis: Thrush, oral Discharge - Sign-Out/Discharge Documenting (check all that apply): Patient Departure All imaging exams completed and their final reports reviewed: No Studies - Discharge Plan Condition: Stable Disposition: HOME Prescriptions: Fluconazole 100 MG TAB* [Diflucan 100 MG TAB*] 100 mg PO DAILY #2 tab Nystatin SUSPENSION* 500,000 units .SEE ORDER Q6H [place]28 [facility] [place] Materials: Oral Candidiasis (ED) Referrals: Jimbo Johns MD [Primary Care Provider] - If Needed - Billing Disposition and Condition Condition: STABLE Disposition: Home
== END 2018-07-13 17:11 | disposition home or self-care (01) ==
LOC: UCCORT 16:30
DX: B37.0 Candidal stomatitis (principal); Z87.891 Personal history of nicotine dependence
CPT/HCPCS: 87651; 99212; G0463

== ENCOUNTER 2018-09-19 10:42 | Emergency (ER) | payer OTHER ==
--- NOTE | 2018-09-19 10:57 | ED ---
Lower Extremity - HPI Summary HPI Summary: This patient is a 62 year old M presenting to [facility] with a chief complaint of severe pain that begins in the left lower back and radiates down side of left leg since 09/18/18, post Colonoscopy. Pt reports no falls or heavy lifting. He has a PSHx of hip replacement (June,). Per triage, the patient rates the pain 10/10 in severity. Pt has no PMHx of diabetes. - History of Current Complaint Chief Complaint: EDExtremityLower Stated Complaint: LEFT LEG PAIN Time Seen by Provider: 09/19/18 10:53 Hx Obtained From: Patient Onset of Pain: Days Onset/Duration: Still Present Severity Initially: Severe Severity Currently: Severe Pain Intensity: 10 Pain Scale Used: 0-10 Numeric Timing: Constant, Lasting Days Location: Is Diffuse - along side of left leg Associated Signs And Symptoms: Positive: Other - pos - lower back pain - Allergies/Home Medications Allergies/Adverse Reactions: Allergies Allergy/AdvReac Type Severity Reaction Status Date / Time No Known Allergies Allergy Verified 09/19/18 10:56 PMH/Surg Hx/FS Hx/Imm Hx Endocrine/Hematology History: Denies: Hx Diabetes, Hx Thyroid Disease Cardiovascular History: Denies: Hx Congestive Heart Failure, Hx Deep Vein Thrombosis, Hx Hypertension , Hx Myocardial Infarction, Hx Pacemaker/ICD Respiratory History: Denies: Hx Asthma, Hx Chronic Obstructive Pulmonary Disease (COPD), Hx Lung Cancer, Hx Pneumonia, Hx Pulmonary Embolism GI History: Denies: Hx Gall Bladder Disease, Hx Gastrointestinal Bleed, Hx Ulcer, Hx Urosepsis History: Denies: Hx Kidney Stones, Hx Renal Disease Sensory History: Reports: Hx Contacts or Glasses - READING Opthamlomology History: Reports: Hx Contacts or Glasses - READING Neurological History: Denies: Hx Dementia, Hx Migraine, Hx Seizures, Hx Transient Ischemic Attacks (TIA) Psychiatric History: Denies: Hx Anxiety, Hx Depression, Hx Schizophrenia, Hx Bipolar Disorder - Surgical History Surgery Procedure, Year, and Place: RIGHT ARM SURGERY FOR FB AND LACERATION. RIGHT CHANDAN. right hip replacement Hx Anesthesia Reactions: No Infectious Disease History: No Infectious Disease History: Denies: Traveled Outside the [place] in Last 30 Days - Family History Known Family History: Positive: Cardiac Disease Negative: Hypertension, Diabetes - Social History Alcohol Use: None Substance Use Type: Reports: None Substance Use Comment - Amount & Last Used: WILL REFRAIN 3 DAYS PREOP Hx Tobacco Use: Yes Smoking Status (MU): Former Smoker Type: Cigarettes Amount Used/How Often: 2-4 CIGS PER DAILY Length of Time of Smoking/Using Tobacco: 40 yrs Have You Smoked in the Last Year: Yes Review of Systems Negative: Fever Positive: Other - pos - lower back pain, left leg pain All Other Systems Reviewed And Are Negative: Yes Physical Exam - Summary Physical Exam Summary: VITAL SIGNS: Reviewed. GENERAL: Patient is a well-developed and nourished male who is lying comfortable in the stretcher. Patient is not in any acute respiratory distress. HEAD AND FACE: No signs of trauma. No ecchymosis, hematomas or skull depressions. No sinus tenderness. EYES: PERRLA, EOMI x 2, No injected conjunctiva, no nystagmus. EARS: Hearing grossly intact. Ear canals and tympanic membranes are within normal limits. MOUTH: Oropharynx within normal limits. NECK: Supple, trachea is midline, no adenopathy, no JVD, no carotid bruit, no c- spine tenderness, neck with full ROM. CHEST: Symmetric, no tenderness at palpation LUNGS: Clear to auscultation bilaterally. No wheezing or crackles. CVS: Regular rate and rhythm, S1 and S2 present, no murmurs or gallops appreciated. ABDOMEN: Soft, non-tender. No signs of distention. No rebound no guarding, and no masses palpated. Bowel sounds are normal. EXTREMITIES: FROM in all major joints, no edema, no cyanosis or clubbing. Decreased ROM in left hip, secondary to pain. Good pulses and capillary refill. Tenderness in lumbar spine. NEURO: Alert and oriented x 3. No acute neurological deficits. Speech is normal and follows commands. SKIN: Dry and warm. Triage Information Reviewed: Yes Vital Signs On Initial Exam: Initial Vitals Temp Pulse Resp BP Pulse Ox 98.4 F 73 18 160/89 97 09/19/18 10:51 09/19/18 10:51 09/19/18 10:51 09/19/18 10:51 09/19/18 10:51 Vital Signs Reviewed: Yes Diagnostics - Vital Signs Vital Signs Temp Pulse Resp BP Pulse Ox 09/19/18 10:51 98.4 F 73 18 160/89 97 - Laboratory Result Diagrams: 09/19/18 12:05 09/19/18 12:05 Lab Statement: Any lab studies that have been ordered have been reviewed, and results considered in the medical decision making process. - Radiology Hip/Pelvis X-Ray Radiology Interpretation Completed By: Radiologist Summary of Radiographic Findings: Hip/Pelvis X-Ray reveals IMPRESSION: MODERATE OSTEOARTHRITIC CHANGE IN THE LEFT HIP. ED physician has review this radiology report. Lumbar Spine X-Ray Radiology Interpretation Completed By: Radiologist Summary of Radiographic Findings: Lumbar Spin X-Ray reveals, per radiologist IMPRESSION: DIFFUSE DEGENERATIVE DISC DISEASE. ED physician has reviewed this radiology report. - Additional Comments Diagnostic Additional Comments: Venous Doppler Study reveals, per radiologist, IMPRESSION: NO EVIDENCE FOR DEEP VENOUS THROMBOSIS ED physician has reviewed this radiology report. Re-Evaluation - Re-Evaluation First Eval Re-Evaluation Time: 14:20 Comment: Discussed results and plan of care with patient. Lung exam before discharge: CTA B/L. Good air exchange. No wheezing or crackles heard. CVS: S1 and S2 present. No murmurs appreciated. Patient is alert and oriented x 3. Patient is hemodynamically stable. Lower Extremity Course/Dx - Course Assessment/Plan: This patient is a 62 year old M presenting to [facility] with a chief complaint of severe pain that begins in the left lower back and radiates down side of left leg since 09/18/18, post Colonoscopy. Pt reports no falls or heavy lifting. He has a PSHx of hip replacement (June,). Per triage, the patient rates the pain 10/10 in severity. Past medical history significant for ileus, and right total hip replacement. In the ED course because of the pain the patient was given Toradol, Decadron, and Norflex. Left lower extremity ultrasound impression: Negative for DVT. Blood work without any significant abnormality except for glucose 105 and CRP of 71.72 possibly consistent with a recent colonoscopy. Urinalysis is negative for UTI. Lumbar spine x ray IMPRESSION: DIFFUSE DEGENERATIVE DISC DISEASE. Hip xary IMPRESSION: MODERATE OSTEOARTHRITIC CHANGE IN THE LEFT HIP. After the patient was given these medications the patients symptoms have significantly improved. The patient is feeling better. Patient is ambulating and his baseline. Pain is only 1 out of 10. I discussed all the findings and test results with the patient. Patient was instructed to return to the emergency room immediately if any of the symptoms return worsens. Plan of care was discussed with the patient and understands and agrees. All questions were answered at patient satisfaction. There were no further complaints or concerns. Lung exam before discharge: CTA B/ L. Good air exchange. No wheezing or crackles heard. CVS: S1 and S2 present. No murmurs appreciated. Patient is alert and oriented x 3. Patient is hemodynamically stable. Patient will be discharged home with follow up PCP in the next 2-3 days - Diagnoses Provider Diagnoses: Hip pain, Back pain Discharge - Sign-Out/Discharge Documenting (check all that apply): Patient Departure - Discharge Patient Received Moderate/Deep Sedation with Procedure: No - Discharge Plan Condition: Stable Disposition: HOME Prescriptions: HYDROcodone/ACETAMIN 5-325 MG* [[place] 5-325 TAB*] 1 tab PO Q6H PRN #10 tab MDD 4 PRN Reason: Pain Ibuprofen TAB* [Motrin TAB* 600 MG] 600 mg PO Q8H PRN #30 tab PRN Reason: Pain methylPREDNISolone [Medrol Dosepak 4 MG*] 0 mg PO .SEE ALEXANDER INSTRUCTION #1 alexander Patient Education Materials: Back Pain (ED), Hip Pain (ED) Referrals: Jimbo Johns MD [Primary Care Provider] - 3 Days Additional Instructions: Follow up with your primary care provider within three days RETURN TO THE ED FOR ANY WORSENING OR NEW SYMPTOMS. - Billing Disposition and Condition Condition: STABLE Disposition: Home - Attestation Statements Document Initiated by Alberto: Yes Documenting Scribe: Alyssa Lindsey Provider For Whom Alberto is Documenting (Include Credential): Dr Lowell Mcrae MD Scribe Attestation: Alyssa Alvarez scribed for Dr Lowell Mcrae MD on 09/19/18 at 2145. Scribe Documentation Reviewed: Yes Provider Attestation: The documentation as recorded by the Alyssa mercado accurately reflects the service I personally performed and the decisions made by me, Dr Lowell Mcrae MD Status of Scribe Document: Viewed
[2018-09-19] MEDS ORDERED: Dexamethasone IV* 4 MG/ML 5 ML VIAL (20 MG) IVPB ONE (11:16)
[2018-09-19] MEDS ORDERED: Ketorolac INJ* 30 MG/ML 1 ML VIAL IV PUSH ONE (11:16)
[2018-09-19] MEDS ORDERED: Orphenadrine Citrate IV* 30 MG/ML 2 ML VIAL IV ONE (11:16)
[2018-09-19 11:46] LABS: Urine Appearance Clear; Urine Bilirubin Negative (Negative); Urine Blood Negative (Negative); Urine Color Yellow; Urine Glucose Negative (Negative); Urine Ketones Negative (Negative); Urine Nitrite Negative (Negative); Urine Protein Negative (Negative); Urine Specific Gravity 1.004 (1.010-1.030); Urine Urobilinogen Negative (Negative)
[2018-09-19 12:19] LABS: ABS Basophils 0.1 10^3/ul (0-0.2); ABS Lymphocytes 2.1 10^3/ul (1.0-4.8); ABS Monocytes 1.1 10^3/ul (0-0.8); ABS Neutrophils 6.8 10^3/ul (1.5-7.7); Eosinophil % 0.5 %; Hematocrit 42 % (42-52); Hemoglobin 14.7 g/dL (14.0-18.0); Lymphocyte % 20.8 %; Mean Corpuscular HGB Conc 35 g/dL (31-36); Mean Corpuscular Hemoglobin 30 pg (27-31); Mean Corpuscular Volume 87 fL (80-94); Mean Platelet Volume 7.9 fL (7.4-10.4); Nucleated Red Blood Cells % 0.1; Platelet Count 216 10^3/uL (150-450); Red Blood Count 4.88 10^6 /uL (4.18-5.48); Red Cell Distribution Width 14 % (10-15); White Blood Count 10.1 10^3/uL (3.5-10.8)
[2018-09-19 12:39] LABS: C Reactive Protein 71.72 mg/L (<8.01); Uric Acid 4.4 mg/dL (4.4-7.6)
[2018-09-19 12:41] LABS: Albumin 3.9 g/dL (3.2-5.2); Albumin/Globulin Ratio 1.3 (1-3); BUN/Creatinine Ratio 9.4 (8-20); Calcium 9.5 mg/dL (8.6-10.3); EGFR African American 153.3 (>60); EGFR Non-African American 126.7 (>60); Globulin 3.1 g/dL (2-4); Potassium 3.9 mmol/L (3.5-5.0); Total Bilirubin 0.6 mg/dL (0.2-1.0)
[2018-09-19 13:34] LABS: Erythrocyte Sed Rate 25 mm/Hr (0-19)
[2018-09-19 15:20] VITALS: BP 134/70
== END 2018-09-19 15:18 | disposition home or self-care (01) ==
LOC: ED 10:42
DX: M54.9 Dorsalgia, unspecified (principal); M25.552 Pain in left hip; M16.12 Unilateral primary osteoarthritis, left hip; M51.36 Other intervertebral disc degeneration, lumbar region; Z87.891 Personal history of nicotine dependence; Z96.641 Presence of right artificial hip joint
CPT/HCPCS: 36415; 72110; 80053; 81003; 83605; 84550; 85025; 85652; 86140; 96374; 96375; 99283; J1100; J1885; J2360